=== PATIENT | female | born 1935 | race Caucasian/White ===

== ENCOUNTER 2016-07-07 11:24 | Emergency (ER) | payer OTHER ==
[~2016-07-07] VITALS: Ht 165.1 cm; Wt 86.2 kg
--- NOTE | ~2016-07-07 | EKG ---
[place] [address] [facility] [place] [address] ELECTROCARDIOGRAM REPORT Name: DORETHA TEIXEIRA Room #: DEP [facility]#: [id number] Admission: 07/07/16 Attend Phys: Discharge: 07/07/16 Date of : 39 Report #: [id number] THIS REPORT FOR: //name// [facility] ED Test Date: 2016-07-07 Test Time: 12:24:33 Pat Name: DORETHA TEIXEIRA Department: Room: Gender: F Jamb Cutter: MZOOK : 1935 Requested By: Alejandrina Cruz Order Number: [id number] MD: Gael Flores Measurements Intervals [place] Rate: 116 P: 15 [place]: 192 QRS: 34 QRSD: 90 T: 20 QT: 308 QTc: 428 Interpretive Statements Sinus tachycardia Probable left atrial enlargement Borderline low voltage, extremity leads No previous ECG available for comparison Electronically Signed On 07-09-2016 15:04:45 CDT by Gael Flores [email or web address] <ELECTRONICALLY SIGNED> By: Gael Flores MD, [facility] 07/09/16 1504 1224 1224 Gael Flores MD, FACC /EPI
[~2016-07-07 11:24] MED LIST: ADULT LOW DOSE81 MG PO; ALENDRONATE; ALEVE220 MG; ALLEGRA; ALLEGRA ALLERGY60 MG PO; ALLEGRA180 MG; APAP650 PO; ASA5UEC PO; ASPIRIN325 PO; AVAPRO 150 MG150 M1 PO; BENTYL 10 MG CA10 MG PO; CALCIUM; CHROMIUM PICO200 MC1 PO; FLEXERIL PO; KEFLEX500 MG PO; LASIX 20 MG TAB20 MG PO; LEVAQUIN 500 M500 M2 PO; LISINOPRIL10 MG PO; MULTIPLE VITAM1 EAC1 PO; NORCO 5-325 TA1 EACH PO; PRAVACHOL20 MG PO; PRILOSEC 20 MG20 MG PO; PROBIOTIC1 EAC1 PO; SYMBICORT80 MCG/4.1 INH; VENTOLIN HFA 1818 GM INH; VITAMIN D1000 UNI1 PO; VITAMIN D3400 UNIT PO; ZINC CHELATE50 MG PO
[2016-07-07 12:05] LABS: HEMOGLOBIN 13.5 gm/dL (12.0-15.0); MCV 87.4 fL (80.0-100.0); WBC 5.1 thou/uL (4.0-11.0)
[2016-07-07 12:07] LABS: MCH 29.6 pg (26.0-34.0); MCHC 33.8 g/dL (28.0-37.0); PLATELET COUNT 112 thou/uL (150-400); RBC 4.57 mil/uL (4.20-5.00); RDW 15.4 % (10.5-14.5)
[2016-07-07 12:09] LABS: MANUAL DIFF YES
[2016-07-07 12:25] LABS: ANION GAP 11 mmol/L (7-16); BUN 12 mg/dL (7-18); CALCIUM 8.4 mg/dL (8.5-10.1); CHLORIDE 103 mmol/L (98-107); CO2 23 mmol/L (21-32); CREATININE 0.9 mg/dL (0.6-1.3); GLUCOSE 122 mg/dL (70-99); POTASSIUM 3.9 mmol/L (3.5-5.1); SODIUM 137 mmol/L (136-145)
[2016-07-07 12:32] LABS: ABSOLUTE NEUTROPHILS 4.7 thou/uL (1.4-8.2); ANISOCYTOSIS 1+; METAMYELOCYTES 2 %; OVALOCYTES FEW; TOTAL CELL COUNT 100
[2016-07-07 12:35] LABS: ALBUMIN 3.1 g/dL (3.4-5.0); ALKALINE PHOSPHATASE 115 U/L (46-116); DIRECT BILIRUBIN 0.2 mg/dL (<0.1-0.3); NT-PRO BRAIN NAT PEPTIDE 95 pg/mL (<300); SGOT 29 U/L (15-37); SGPT 23 U/L (30-65); TOTAL BILIRUBIN 1.2 mg/dL (<0.1-1.0); TOTAL PROTEIN 6.7 g/dL (6.4-8.2); TROPONIN-I < 0.04 ng/mL (<0.04-0.07)
[2016-07-07] MEDS ORDERED: VENTOLIN HFA 1818 GM INH (13:22)
[2016-07-07] MEDS ORDERED: FLUTICASONE PRO16 GM NS (13:23)
[2016-07-07] MEDS ORDERED: ZOFRAN ODT4 MG PO (15:56)
== END 2016-07-07 16:40 | disposition home or self-care (01) ==
LOC: ER 11:24
PROVIDERS: Emergency Medicine
DX: R11.2 Nausea with vomiting, unspecified (principal); R51 Headache; R09.02 Hypoxemia; I10 Essential (primary) hypertension; Z88.1 Allergy status to other antibiotic agents; Z88.6 Allergy status to analgesic agent; Z88.0 Allergy status to penicillin; Z91.041 Radiographic dye allergy status; Z88.5 Allergy status to narcotic agent; Z88.8 Allergy status to other drugs, medicaments and biological substances

== ENCOUNTER 2016-08-24 15:08 | Observation (INO) | payer OTHER ==
[~2016-08-24] VITALS: Ht 172.7 cm; Wt 86.6 kg
--- NOTE | ~2016-08-24 | EKG ---
[address] [place] [address] ELECTROCARDIOGRAM REPORT Name: TEIXEIRA,DORETHA Cisneros Room #: 455-P ADM IN .R.#: [id number] Admission: 08/24/16 Attend Phys: Markos Kulkarni MD Discharge: Date of : 37 Report #: [id number] THIS REPORT FOR: //name// [facility] ED Test Date: 2016-08-24 Test Time: 15:46:01 Pat Name: DORETHA TEIXEIRA Department: Room: [facility] Gender: F Import Coordinator: rosemary : 1935 Requested By: Yvette Darling Order Number: [id number] MD: Gael Flores Measurements Intervals [place] Rate: 93 P: 12 [place]: 178 QRS: 22 QRSD: 87 T: 24 QT: 334 QTc: 416 Interpretive Statements Sinus rhythm Baseline wander in lead(s) V6 Compared to ECG 07/07/2016 12:24:33 Sinus tachycardia no longer present Electronically Signed On 08-25-2016 8:02:40 CDT by Gael Flores [email or web address] <ELECTRONICALLY SIGNED> By: Gael Flores MD, [facility] 08/25/16 0802 1546 1546 Gael Flores MD, [facility] /EPI
--- NOTE | ~2016-08-24 | 2DMMODE ---
[facility] [address] [place] [address] 2 D/M-MODE ECHOCARDIOGRAM Name: LLUVIADORETHA Blayne Room #: 455-P [facility] IN M.R.#: [id number] Admission: 08/24/16 Attend Phys: Markos Kulkarni, Discharge: Date of : 37 Date of Service: 08/25/16 1243 Report #: [id number] THIS REPORT FOR: //name// APPROVED REPORT Study performed: 08/25/2016 11:42:10 EXAM: Comprehensive 2D, Doppler, and color-flow Echocardiogram Patient Location: Bedside Room #: [facility] Other Information Study Quality: Fair Indications Chest Pain Hypertension/HDD Echo Enhancing Agent Indication: Endocardial border delineation Agent/Amount Used: Definity 2 cc Aortic Valve AoV Peak Favio.: 1.37 m/s AO Peak Gr.: 7.48 mmHg LVOT Max P.22 mmHg LVOT Max V: 1.03 m/s Mitral Valve IVRT: 134.95 ms Pulmonary Valve PV Peak Favio.: 1.19 m/s PV Peak Gr.: 5.62 mmHg Left Ventricle The left ventricle is normal size. There is normal LV segmental wall motion. There is normal left ventricular wall thickness. The left ventricular systolic function is normal. The left ventricular ejection fraction is within the normal range. LVEF is 55-60%. Grade I - abnormal relaxation pattern. Right Ventricle The right ventricle is normal size. The right ventricular systolic function is normal. [facility] [address] [place] [address] 2 D/M-MODE ECHOCARDIOGRAM Name: DORETHA TEIXEIRA Room #: 455-P [facility] IN .R.#: [id number] Admission: 08/24/16 Attend Phys: Markos Kulkarni, Discharge: Date of : 37 Date of Service: 08/25/16 1243 Report #: [id number] At[employer] The left atrium size is normal. Right atrium is not well visualized. Aortic Valve Aortic valve is not well visualized but appears normal. No aortic regurgitation is present. There is no aortic valvular stenosis. Mitral Valve The mitral valve is normal in structure. There is no mitral valve regurgitation noted. No evidence of mitral valve stenosis. Tricuspid Valve The tricuspid valve is normal in structure. There is no tricuspid valve regurgitation noted. Pulmonic Valve Pulmonic valve is not well visualized. Great Vessels Aortic root is not well visualized. IVC is not well visualized. Pericardium There is no pericardial effusion. <Conclusion> The left ventricular systolic function is normal. LVEF is 55-60%. There is normal LV segmental wall motion. Grade I - abnormal relaxation pattern. Aortic valve is not well visualized but appears normal. There is no aortic valvular stenosis oe insufficiency. The mitral valve is normal in structure. No mitral insufficiency There is no pericardial effusion. <ELECTRONICALLY SIGNED> By: Gael Flores MD, [facility] 08/25/16 1243 1243 1243 Gael Flores MD, FAC /INF
--- NOTE | ~2016-08-24 | HC ---
[facility] [place] [address] CONSULTATION Name: DORETHA TEIXEIRA Room #: 455-P [facility]..#: [id number] Admission: 08/24/16 Attend Phys: Markos Kulkarni MD Discharge: Date of : 37 Report #: [id number] THIS REPORT FOR: //name// CC: Markos Sheehan MD CARDIOLOGY CONSULTATION HISTORY OF PRESENT ILLNESS: The patient is a 81-year-old female who I just very intermittently see; I last saw her in January of 2014. She does have a significant family history of coronary artery disease with the father and a brother in the 70s has had a stent and the father had coronary artery disease prematurely and then from aortic aneurysm rupture. She had been doing well until the last few months, but having predominantly GI issues. Has had an extensive GI workup and scheduled for a scope. Had CAT scan here, which revealed nothing. Abdominal CAT scan was unremarkable here. She claims she has had some weight loss. Has a large hiatal hernia and feels a lot of chest pressure in the chest, neck, throat and shoulder. Although no troponin elevation, an EKG has some nonspecific changes, it is sinus rhythm. She is compliant with her medications, which cardiovascular crocker were really only irbesartan 150 a day, dicyclomine, zinc and Prilosec. Her lipids have not been significantly elevated in the past. She has not been on medicine for these. No syncope or presyncope. She remains active, but does not regularly exercise. PAST MEDICAL HISTORY: Positive for the hypertension, some asthma, chronic reflux, some weight loss now, prior DC, BABITA-BSO, appendectomy, cataract surgery and has had low blood sugars in the past. ALLERGIES: PENICILLIN, SULFA, IODINE, NICKEL and questionable BLAZE INHIBITORS with causing a rash. SOCIAL HISTORY: She is , with children. Quit tobacco 20-25 years ago. No alcohol. Moderate caffeine intake. 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 FAMILY HISTORY: Brother had stents in his early 70s and father had coronary artery disease and an aortic aneurysm in his 50s or 60s, she states. REVIEW OF SYSTEMS: Negative, except for stated above. Slightly more fatigued and this generalized irritable bowel issue. This has seemed of have worsened as well as reflux. LABORATORY DATA: H and H are 12.7 and 38, white count is 7.4. Sodium 136, potassium 4.3 and creatinine 0.7. Troponin is negative. PHYSICAL EXAMINATION: [address] [address] CONSULTATION Name: DORETHA TEIXEIRA Room #: 455-P [facility] M.R.#: [id number] Admission: 08/24/16 Attend Phys: Markos Kulkarni MD Discharge: Date of : 37 Report #: [id number] VITAL SIGNS: Blood pressure 124/64, pulse is 80 and regular. HEENT: Eyes reveal xanthelasmas. Pharynx is clear. NECK: Shows preserved upstrokes, without JVD or bruits. LUNGS: Clear. CARDIAC EXAMINATION: Regular rate and rhythm, S1, S2, without murmur or gallop. ABDOMEN: Slightly tender in the midepigastric. Positive bowel sounds are noted. EXTREMITIES: Reveal trace of nonpitting edema. NEUROLOGIC: Nonfocal. MUSCULOSKELETAL: Mild valgus deformity of the knees. No gross joint deformity. SKIN: Warm and dry, without xanthoma or ulcer. ASSESSMENT: 1. Chest pain, suspect this is noncardiac, but we will continue with further evaluation. 2. Abdominal pain with weight loss, continue workup. 3. Hypertension. 4. Irritable bowel with significant reflux history. 5. Degenerative joint disease. RECOMMENDATIONS AND PLAN: I agree with a nuclear stress test today. She appears to be hemodynamically stable. Continue the irbesartan. Would check lipids and address those accordingly with her family history. We will discuss the outcome on the nuclear study with primary. One could continue aggressive outpatient workup if nuclear test negative. We will be happy to follow her up regularly in addition, although it appears her cardiovascular status is stable. Thank you for asking us to assist in the care of this patient. By: 0928 1245 Leroy Cancino MD, FACC /nt
[~2016-08-24 15:08] MED LIST changes: +FLUTICASONE PRO16 GM NS; +ZOFRAN ODT4 MG PO
[2016-08-24 15:09] VITALS: BP 113/82
[2016-08-24] MEDS ORDERED: BENTYL 10 MG CA10 M1 PO (15:36)
[2016-08-24 15:48] LABS: ABSOLUTE NEUTROPHILS 5.5 thou/uL (1.4-8.2); BASOPHILS 0.7 % (0.0-2.0); EOSINOPHILS 0.4 % (0.0-3.0); HEMATOCRIT 37.3 % (37.0-47.0); HEMOGLOBIN 12.6 gm/dL (12.0-15.0); LYMPHOCYTES 14.8 % (24.0-44.0); MCH 28.1 pg (26.0-34.0); MCHC 33.8 g/dL (28.0-37.0); MCV 83.2 fL (80.0-100.0); MONOCYTES 8.6 % (1.0-8.0); PLATELET COUNT 231 thou/uL (150-400); POLYS 75.5 % (36.0-66.0); RBC 4.49 mil/uL (4.20-5.00); RDW 15.9 % (10.5-14.5); WBC 7.3 thou/uL (4.0-11.0)
[2016-08-24 15:50] LABS: MANUAL DIFF NO
[2016-08-24 16:01] LABS: ANION GAP 8 mmol/L (7-16); BUN 13 mg/dL (7-18); CALCIUM 8.9 mg/dL (8.5-10.1); CHLORIDE 97 mmol/L (98-107); CO2 26 mmol/L (21-32); CREATININE 0.6 mg/dL (0.6-1.0); GLUCOSE 109 mg/dL (74-106); SODIUM 131 mmol/L (136-145)
[2016-08-24 16:12] LABS: ALBUMIN 2.9 g/dL (3.4-5.0); ALKALINE PHOSPHATASE 85 U/L (46-116); NT-PRO BRAIN NAT PEPTIDE 83 pg/mL (<300); SGOT 18 U/L (15-37); SGPT 14 U/L (30-65); TOTAL BILIRUBIN 0.9 mg/dL (<0.1-1.0); TOTAL PROTEIN 7.8 g/dL (6.4-8.2); TROPONIN-I < 0.04 ng/mL (<0.04-0.07)
[2016-08-24 16:16] LABS: APTT 27.6 Seconds (24.5-32.8); INR 1.1; PROTIME 11.1 Seconds (9.3-11.4)
[2016-08-24 18:29] VITALS: BP 126/78
[2016-08-24 20:04] VITALS: BP 143/65
[2016-08-25 00:14] VITALS: BP 118/57
[2016-08-25 03:55] LABS: HEMATOCRIT 38.1 % (37.0-47.0); HEMOGLOBIN 12.7 gm/dL (12.0-15.0); MCHC 33.2 g/dL (28.0-37.0); MCV 84.2 fL (80.0-100.0); RBC 4.52 mil/uL (4.20-5.00); RDW 15.6 % (10.5-14.5); WBC 7.4 thou/uL (4.0-11.0)
[2016-08-25 04:09] LABS: ALBUMIN 2.7 g/dL (3.4-5.0); ALKALINE PHOSPHATASE 81 U/L (46-116); ANION GAP 8 mmol/L (7-16); BUN 10 mg/dL (7-18); CALCIUM 8.9 mg/dL (8.5-10.1); CHLORIDE 101 mmol/L (98-107); CO2 27 mmol/L (21-32); CREATININE 0.7 mg/dL (0.6-1.0); GLUCOSE 155 mg/dL (74-106); POTASSIUM 4.3 mmol/L (3.5-5.1); SGOT 16 U/L (15-37); SGPT 14 U/L (30-65); SODIUM 136 mmol/L (136-145); TOTAL BILIRUBIN 0.6 mg/dL (<0.1-1.0); TOTAL PROTEIN 7.4 g/dL (6.4-8.2); TROPONIN-I < 0.04 ng/mL (<0.04-0.07)
[2016-08-25 04:26] VITALS: BP 113/49
[2016-08-25 08:48] VITALS: BP 125/65
[2016-08-25 09:58] LABS: CHOLESTEROL 155 mg/dL (<200); HDL CHOLESTEROL 68 mg/dL (>40); LDL CHOLESTEROL 83 mg/dL (<100); TC:HDL 2.3 Ratio (Not establshd); TRIGLYCERIDE 22 mg/dL (<150); VLDL 4 mg/dL (<40)
[2016-08-25 15:40] VITALS: BP 125/65
== END 2016-08-25 16:56 | disposition home or self-care (01) ==
LOC: ER 15:08 → 4W 16:31 → EROBS 16:31 → 4W 16:31
PROVIDERS: Emergency Medicine; Internal Medicine; Internal Medicine Cardiovascular Disease
DX: R07.89 Other chest pain (principal); E87.1 Hypo-osmolality and hyponatremia; E87.8 Other disorders of electrolyte and fluid balance, not elsewhere classified; K21.9 Gastro-esophageal reflux disease without esophagitis; I10 Essential (primary) hypertension; R63.4 Abnormal weight loss; R10.9 Unspecified abdominal pain; M19.90 Unspecified osteoarthritis, unspecified site; K58.9 Irritable bowel syndrome, unspecified; R11.0 Nausea
CPT/HCPCS: 10045

== ENCOUNTER 2016-10-22 20:51 | Emergency (ER) | payer OTHER ==
[~2016-10-22] VITALS: Ht 170.2 cm; Wt 83.9 kg
[~2016-10-22 20:51] MED LIST changes: +BENTYL 10 MG CA10 M1 PO; +CHLORHEXIDINE FL1 ML MC
[2016-10-22] MEDS ORDERED: VITAMIN B-12500 MCG PO (21:22)
[2016-10-22] MEDS ORDERED: ASPIR 8181 MG PO (21:23)
[2016-10-22] MEDS ORDERED: PERIDEX 0.12%473 M1 PO (21:24)
[2016-10-22] MEDS ORDERED: HYDROXYZINE HCL25 M1 PO (22:46)
[2016-10-22] MEDS ORDERED: BENADRYL25 MG PO (22:56)
== END 2016-10-22 22:57 | disposition home or self-care (01) ==
LOC: ER 20:51
DX: R20.8 Other disturbances of skin sensation (principal); I10 Essential (primary) hypertension; Z88.6 Allergy status to analgesic agent; Z88.1 Allergy status to other antibiotic agents; Z91.041 Radiographic dye allergy status; Z88.0 Allergy status to penicillin; Z88.8 Allergy status to other drugs, medicaments and biological substances; Z87.891 Personal history of nicotine dependence

== ENCOUNTER → 2017-01-08 | Outpatient (CLI) | payer OTHER ==
[~2017-01-08] MED LIST changes: +ASPIR 8181 MG PO; +BENADRYL25 MG PO; +HYDROXYZINE HCL25 M1 PO; +PERIDEX 0.12%473 M1 PO; +VITAMIN B-12500 MCG PO
== END ==
LOC: HYPER 06:42
DX: T81.89XD Other complications of procedures, not elsewhere classified, subsequent encounter (principal); I10 Essential (primary) hypertension; K21.9 Gastro-esophageal reflux disease without esophagitis; M19.90 Unspecified osteoarthritis, unspecified site; M85.80 Other specified disorders of bone density and structure, unspecified site; Z90.710 Acquired absence of both cervix and uterus; Z87.891 Personal history of nicotine dependence; Y83.8 Other surgical procedures as the cause of abnormal reaction of the patient, or of later complication, without mention of misadventure at the time of the procedure

== ENCOUNTER → 2017-01-15 | Outpatient (CLI) | payer OTHER | LOC: HYPER 07:07 | DX: T81.4XXD Infection following a procedure, subsequent encounter (principal); I10 Essential (primary) hypertension; K21.9 Gastro-esophageal reflux disease without esophagitis; M19.90 Unspecified osteoarthritis, unspecified site; Z90.710 Acquired absence of both cervix and uterus; Z87.891 Personal history of nicotine dependence; Z96.653 Presence of artificial knee joint, bilateral; Y83.8 Other surgical procedures as the cause of abnormal reaction of the patient, or of later complication, without mention of misadventure at the time of the procedure ==

== ENCOUNTER → 2017-01-29 | Outpatient (CLI) | payer OTHER | LOC: HYPER 07:02 | DX: T81.4XXD Infection following a procedure, subsequent encounter (principal); I10 Essential (primary) hypertension; K21.9 Gastro-esophageal reflux disease without esophagitis; M19.90 Unspecified osteoarthritis, unspecified site; Z87.891 Personal history of nicotine dependence; Y83.8 Other surgical procedures as the cause of abnormal reaction of the patient, or of later complication, without mention of misadventure at the time of the procedure ==

== ENCOUNTER 2018-08-17 09:31 | Emergency (ER) | payer OTHER ==
[~2018-08-17] VITALS: Ht 167.6 cm; Wt 79.4 kg
[2018-08-17 10:05] LABS: URINE BILIRUBIN NEGATIVE (Negative); URINE BLOOD 1+ (Negative); URINE CLARITY CLOUDY; URINE COLOR YELLOW; URINE GLUCOSE-RANDOM* NEGATIVE (Negative); URINE KETONES NEGATIVE (Negative); URINE PROTEIN (DIPSTICK) NEGATIVE (Negative); URINE SPECIFIC GRAVITY <= 1.005 (1.005-1.035); URINE UROBILINOGEN 0.2 E.U./dl (0.2-1.0)
[2018-08-17 10:07] LABS: URINE LEUKOCYTES-REFLEX 3+ (Negative); URINE NITRITE-REFLEX POSITIVE (Negative)
[2018-08-17 10:37] LABS: BACTERIA-REFLEX >30 Many /HPF (None Seen); CASTS None Seen /LPF (None Seen); CRYSTALS None Seen /LPF (None Seen); SQUAMOUS 0-3 Few /LPF (0-3); URINE RBC 0-2 Rare /HPF (0-2); URINE WBC-REFLEX >25 Many /HPF (0-5)
[2018-08-17 11:40] VITALS: BP 186/90
== END 2018-08-17 11:40 | disposition home or self-care (01) ==
LOC: ER 09:31
PROVIDERS: Student in an Organized Health Care Education/Training Program
DX: S30.814A Abrasion of vagina and vulva, initial encounter (principal); N39.0 Urinary tract infection, site not specified; I10 Essential (primary) hypertension; Z88.6 Allergy status to analgesic agent; Z88.1 Allergy status to other antibiotic agents; Z91.041 Radiographic dye allergy status; Z88.5 Allergy status to narcotic agent; Z88.0 Allergy status to penicillin; Z88.2 Allergy status to sulfonamides; Z88.8 Allergy status to other drugs, medicaments and biological substances; Z87.891 Personal history of nicotine dependence; X58.XXXA Exposure to other specified factors, initial encounter; Y93.89 Activity, other specified; Y92.89 Other specified places as the place of occurrence of the external cause; Y99.8 Other external cause status

== ENCOUNTER 2018-09-11 13:37 | Emergency (ER) | payer OTHER ==
[~2018-09-11] VITALS: Ht 170.2 cm; Wt 101.2 kg
[2018-09-11 14:08] VITALS: BP 142/87
[2018-09-11] MEDS ORDERED: CEFDINIR300 MG PO (14:27)
== END 2018-09-11 15:24 | disposition home or self-care (01) ==
LOC: ER 13:37
DX: M79.662 Pain in left lower leg (principal); I10 Essential (primary) hypertension; Z87.891 Personal history of nicotine dependence; Z88.0 Allergy status to penicillin; Z88.1 Allergy status to other antibiotic agents; Z88.2 Allergy status to sulfonamides; Z88.5 Allergy status to narcotic agent; Z88.6 Allergy status to analgesic agent; Z91.041 Radiographic dye allergy status; Z88.8 Allergy status to other drugs, medicaments and biological substances

== ENCOUNTER 2019-01-13 11:19 | Emergency (ER) | payer OTHER ==
[~2019-01-13] VITALS: Ht 172.7 cm; Wt 99.5 kg
[~2019-01-13 11:19] MED LIST changes: +CEFDINIR300 MG PO
[2019-01-13] MEDS ORDERED: VALSARTAN160 MG PO (11:32)
[2019-01-13 12:02] LABS: URINE BILIRUBIN NEGATIVE (Negative); URINE BLOOD 2+ (Negative); URINE CLARITY CLOUDY; URINE COLOR YELLOW; URINE GLUCOSE-RANDOM* NEGATIVE (Negative); URINE KETONES NEGATIVE (Negative); URINE LEUKOCYTES-REFLEX 3+ (Negative); URINE NITRITE-REFLEX POSITIVE (Negative); URINE PROTEIN (DIPSTICK) 1+ (Negative); URINE UROBILINOGEN 0.2 E.U./dl (0.2-1.0)
[2019-01-13 12:23] LABS: CALCIUM 8.6 mg/dL (8.5-10.1); CREATININE 0.8 mg/dL (0.6-1.0)
[2019-01-13 12:25] LABS: HEMATOCRIT 41.1 % (37.0-47.0); HEMOGLOBIN 13.3 gm/dL (12.0-15.0); MCH 27.3 pg (26.0-34.0); MCHC 32.3 g/dL (28.0-37.0); MCV 84.5 fL (80.0-100.0); PLATELET COUNT 155 thou/uL (150-400); RBC 4.87 mil/uL (4.20-5.00); RDW 17.2 % (10.5-14.5); WBC 4.3 thou/uL (4.0-11.0)
[2019-01-13 12:30] LABS: ALBUMIN 3.2 g/dL (3.4-5.0); TOTAL BILIRUBIN 0.7 mg/dL (<0.1-1.0); TOTAL PROTEIN 7.5 g/dL (6.4-8.2)
[2019-01-13 12:46] LABS: BACTERIA-REFLEX >30 Many /HPF (None Seen); CASTS None Seen /LPF (None Seen); CRYSTALS None Seen /LPF (None Seen); SQUAMOUS None Seen /LPF (0-3); URINE WBC-REFLEX >25 Many /HPF (0-5)
[2019-01-13 12:47] LABS: URINE RBC 3-10 Few /HPF (0-2)
[2019-01-13 13:09] LABS: ABSOLUTE NEUTROPHILS 2.8 thou/uL (1.4-8.2); PLATELET ESTIMATE NORMAL
[2019-01-13 13:23] VITALS: BP 138/87
== END 2019-01-13 13:24 | disposition home or self-care (01) ==
LOC: ER 11:19
PROVIDERS: Physician Assistant
DX: N39.0 Urinary tract infection, site not specified (principal); I10 Essential (primary) hypertension; Z91.041 Radiographic dye allergy status; Z88.1 Allergy status to other antibiotic agents; Z88.0 Allergy status to penicillin; Z88.6 Allergy status to analgesic agent; Z88.8 Allergy status to other drugs, medicaments and biological substances; Z87.891 Personal history of nicotine dependence

== ENCOUNTER 2019-03-24 10:50 | Emergency (ER) | payer OTHER ==
[~2019-03-24] VITALS: Ht 172.7 cm; Wt 100.2 kg
[~2019-03-24 10:50] MED LIST changes: +VALSARTAN160 MG PO
[2019-03-24 11:46] LABS: ABSOLUTE NEUTROPHILS 2.3 thou/uL (1.4-8.2); BASOPHILS 1.2 % (0.0-2.0); EOSINOPHILS 1.6 % (0.0-3.0); HEMATOCRIT 42.1 % (37.0-47.0); HEMOGLOBIN 13.5 gm/dL (12.0-15.0); LYMPHOCYTES 24.9 % (24.0-44.0); MCH 26.9 pg (26.0-34.0); MCV 84.2 fL (80.0-100.0); MONOCYTES 10.3 % (1.0-8.0); PLATELET COUNT 136 thou/uL (150-400); RBC 5.01 mil/uL (4.20-5.00); RDW 16.9 % (10.5-14.5); WBC 3.7 thou/uL (4.0-11.0)
[2019-03-24 11:54] LABS: CALCIUM 9.1 mg/dL (8.5-10.1); CREATININE 0.6 mg/dL (0.6-1.0); POTASSIUM 4.2 mmol/L (3.5-5.1)
[2019-03-24 12:01] LABS: ALBUMIN 3.6 g/dL (3.4-5.0); TOTAL BILIRUBIN 0.8 mg/dL (<0.1-1.0); TOTAL PROTEIN 7.5 g/dL (6.4-8.2)
[2019-03-24 13:03] VITALS: BP 170/119
== END 2019-03-24 13:39 | disposition home or self-care (01) ==
LOC: ER 10:50
PROVIDERS: Physician Assistant
DX: R60.0 Localized edema (principal); I10 Essential (primary) hypertension; Z87.891 Personal history of nicotine dependence; Z88.6 Allergy status to analgesic agent; Z88.1 Allergy status to other antibiotic agents; Z91.041 Radiographic dye allergy status; Z88.8 Allergy status to other drugs, medicaments and biological substances; Z88.2 Allergy status to sulfonamides; Z79.899 Other long term (current) drug therapy; Z79.82 Long term (current) use of aspirin

== ENCOUNTER 2019-04-28 10:37 | Emergency (ER) | payer OTHER ==
[~2019-04-28] VITALS: Ht 170.2 cm; Wt 99.8 kg
[2019-04-28 11:00] LABS: ABSOLUTE NEUTROPHILS 2.7 thou/uL (1.4-8.2); BASOPHILS 0.7 % (0.0-2.0); EOSINOPHILS 1.8 % (0.0-3.0); HEMOGLOBIN 13.8 gm/dL (12.0-15.0); LYMPHOCYTES 26.3 % (24.0-44.0); MCH 27.2 pg (26.0-34.0); MCHC 32.1 g/dL (28.0-37.0); MCV 84.9 fL (80.0-100.0); PLATELET COUNT 151 thou/uL (150-400); POLYS 60.2 % (36.0-66.0); RBC 5.06 mil/uL (4.20-5.00); RDW 17.8 % (10.5-14.5); WBC 4.6 thou/uL (4.0-11.0)
[2019-04-28 11:06] LABS: ANION GAP 7 mmol/L (7-16); BUN 12 mg/dL (7-18); CALCIUM 9.4 mg/dL (8.5-10.1); CHLORIDE 108 mmol/L (98-107); CO2 30 mmol/L (21-32); CREATININE 0.8 mg/dL (0.6-1.0); GLUCOSE 112 mg/dL (74-106); POTASSIUM 3.7 mmol/L (3.5-5.1); SODIUM 145 mmol/L (136-145)
[2019-04-28 11:16] LABS: ALBUMIN 3.7 g/dL (3.4-5.0); SGOT 19 U/L (15-37); SGPT 27 U/L (30-65); TOTAL BILIRUBIN 0.8 mg/dL (<0.1-1.0); TOTAL PROTEIN 7.9 g/dL (6.4-8.2); TROPONIN-I <0.06 ng/mL (<0.06)
[2019-04-28] MEDS ORDERED: IRBESARTAN150 MG PO (12:23)
[2019-04-28] MEDS ORDERED: VITAMIN D50000 UNIT PO (12:24)
[2019-04-28] MEDS ORDERED: CARAFATE 1 GM TA1 G1 PO ×2 (13:07→13:16)
[2019-04-28 13:43] VITALS: BP 146/67
--- NOTE | 2019-04-28 13:50 | EKG ---
[address] [address] ELECTROCARDIOGRAM REPORT Name: TEIXEIRA,DORETHA Cisneros Room #: DEP [facility]#: [id number] Admission: 04/28/19 Attend Phys: Discharge: 04/28/19 Date of : 37 Report #: [id number] THIS REPORT FOR: //name// [facility] ED Test Date: 2019-04-28 Test Time: 10:51:15 Pat Name: DORETHA TEIXEIRA Department: Room: Gender: F Electrical And Radio Mechanic: hood gamino : 1935 Requested By: Mirela Beaver Order Number: [id number] MD: Man Robb Measurements Intervals [place] Rate: 77 P: 15 [place]: 190 QRS: 28 QRSD: 99 T: 24 QT: 363 QTc: 411 Interpretive Statements Sinus rhythm Compared to ECG 09/05/2016 19:16:50 No significant changes Electronically Signed On 04-28-2019 13:50:12 VENEER GRADER by Man Robb [email or web address] <ELECTRONICALLY SIGNED> By: Man Robb MD 04/28/19 1350 1050 50 Man Robb MD /ISMAEL
== END 2019-04-28 13:44 | disposition home or self-care (01) ==
LOC: ER 10:37
PROVIDERS: Physician Assistant
DX: K21.9 Gastro-esophageal reflux disease without esophagitis (principal); R07.89 Other chest pain; I10 Essential (primary) hypertension; Z88.6 Allergy status to analgesic agent; Z88.1 Allergy status to other antibiotic agents; Z88.0 Allergy status to penicillin; Z88.2 Allergy status to sulfonamides; Z88.8 Allergy status to other drugs, medicaments and biological substances; Z87.891 Personal history of nicotine dependence

== ENCOUNTER → 2019-05-13 | Outpatient (CLI) | payer OTHER ==
[~2019-05-13] MED LIST changes: +CARAFATE 1 GM TA1 G1 PO; +IRBESARTAN150 MG PO; +VITAMIN D50000 UNIT PO
== END ==
LOC: CAT 05-02 19:51
DX: Z13.6 Encounter for screening for cardiovascular disorders (principal); E78.00 Pure hypercholesterolemia, unspecified; I25.10 Atherosclerotic heart disease of native coronary artery without angina pectoris

== ENCOUNTER → 2019-06-09 | Outpatient (CLI) | payer OTHER | LOC: SJCVC 14:25 | DX: I44.0 Atrioventricular block, first degree (principal); R94.31 Abnormal electrocardiogram [ECG] [EKG]; I25.10 Atherosclerotic heart disease of native coronary artery without angina pectoris; I10 Essential (primary) hypertension; E78.5 Hyperlipidemia, unspecified; J45.909 Unspecified asthma, uncomplicated; Z90.49 Acquired absence of other specified parts of digestive tract; Z90.710 Acquired absence of both cervix and uterus; Z96.652 Presence of left artificial knee joint; Z79.899 Other long term (current) drug therapy; Z87.891 Personal history of nicotine dependence ==

== ENCOUNTER → 2019-10-07 | Outpatient (CLI) | payer OTHER ==
[~2019-10-07] MED LIST changes: +B12 ACTIVE1000 MCG PO; +CLOPIDOGREL75 MG PO; +HYDROCHLOROTH12.5 M2 PO; +MAGNESIUM250 M1 PO; +MELATONIN5 MG PO; +PRILOSEC10 MG PO; +ROSUVASTATIN CA10 MG PO; +SENNA8.6 MG PO; +XARELTO20 MG PO; +ZINC 15 MG LOZE15 MG PO
== END ==
LOC: SJCVCIMAG 09:33
PROVIDERS: ATTEND Internal Medicine Cardiovascular Disease
DX: Z01.818 Encounter for other preprocedural examination (principal); R00.0 Tachycardia, unspecified; I25.10 Atherosclerotic heart disease of native coronary artery without angina pectoris; E78.5 Hyperlipidemia, unspecified; I10 Essential (primary) hypertension; Z87.891 Personal history of nicotine dependence

== ENCOUNTER 2019-10-14 07:55 | Observation (INO) | payer OTHER ==
[2019-10-14] VITALS (12 sets, daily range): BP systolic 127–161; BP diastolic 62–88
[~2019-10-14] VITALS: Ht 172.7 cm; Wt 98.9 kg
[~2019-10-14 07:55] MED LIST changes: -B12 ACTIVE1000 MCG PO; -CLOPIDOGREL75 MG PO; -HYDROCHLOROTH12.5 M2 PO; -MAGNESIUM250 M1 PO; -MELATONIN5 MG PO; -PRILOSEC10 MG PO; -ROSUVASTATIN CA10 MG PO; -SENNA8.6 MG PO; -XARELTO20 MG PO; -ZINC 15 MG LOZE15 MG PO
[2019-10-14 08:34] LABS: HEMATOCRIT 43.3 % (37.0-47.0); HEMOGLOBIN 14.3 gm/dL (12.0-15.0); MCH 28.6 pg (26.0-34.0); MCHC 33.1 g/dL (28.0-37.0); MCV 86.4 fL (80.0-100.0); RBC 5.01 mil/uL (4.20-5.00); RDW 17.3 % (10.5-14.5); WBC 4.6 thou/uL (4.0-11.0)
[2019-10-14 08:47] LABS: CALCIUM 8.7 mg/dL (8.5-10.1); CREATININE 0.7 mg/dL (0.6-1.0); POTASSIUM 3.7 mmol/L (3.5-5.1)
[2019-10-14] MEDS ORDERED: HYDROCHLOROTH12.5 M2 PO (08:54)
[2019-10-14] MEDS ORDERED: B12 ACTIVE1000 MCG PO (08:56)
[2019-10-14] MEDS ORDERED: ZINC 15 MG LOZE15 MG PO (08:57)
[2019-10-14] MEDS ORDERED: MAGNESIUM250 M1 PO (08:57)
[2019-10-14] MEDS ORDERED: CHROMIUM PICO200 MC1 PO (08:58)
[2019-10-14] MEDS ORDERED: ROSUVASTATIN CA10 MG PO (08:59)
[2019-10-14] MEDS ORDERED: SENNA8.6 MG PO (09:00)
[2019-10-14] MEDS ORDERED: MELATONIN5 MG PO (09:01)
[2019-10-14] MEDS ORDERED: PRILOSEC10 MG PO (09:02)
--- NOTE | 2019-10-14 17:01 | NUR ---
PT CARE ASSUMED APPROX 0700. ASSESSMENTS CHARTED. PT DENIES PAIN AND SOA. VSS. RIGHT GROIN POST CATH SITE C/D/I. PT UP WITH STEADY GAIT. TOLERATING POC. NO DISTRESS NOTED.
--- NOTE | 2019-10-14 17:30 | CATHLAB ---
[facility] [place] [address] INVASIVE PROCEDURE REPORT Name: DORETHA TEIXEIRA Room #: 217-P [facility] [place] M.R.#: [id number] Admission: 10/14/19 Attend Phys: Leroy Cancino MD, Discharge: Date of : 37 Report #: [id number] THIS REPORT FOR: cc: Karen Sheehan MD, Melanie MD Mancuso, Gerald M. MD [facility] ~ APPROVED REPORT Study performed: 10/14/2019 08:40:00 Patient Details Patient Status: Out-Patient Room #: The patient is a 84 year-old female Event Personnel Leroy Cancino Oil Expeller Operator, Virginia Ramos RN, Mike Garvey RTR Scrub, Lise Mann RTR Monitor, Kim Bullard RTR, INTERNET E COMMERCE SPECIALIST Monitor Procedures Performed Art Access - R femoral artery* Left Heart Cath w/or w/o Coronaries [id number] [facility] [address] Place w/wo Plasty Single OM 352366 Aortogram Abdominal Peripheral Angio 148440 51399 Initial Mod Sed Same Phys/QHP Gr5y 918868 23612 Mod Sed Same Phys/QHP Ea 158426 Hemostasis w/ Mynx Indication Chest pain Procedure Narrative The Right Groin^ was infiltrated with 1% Lidocaine subcutaneous anesthesia. A PINNACLE 6FR Sheath #[id number] sheath was inserted into the RFA^. Coronary angiography was performed using coronary diagnostic catheters. The right coronary system was accessed and visualized with a 3DRC catheter. The left coronary system was accessed and visualized with a JL4 catheter. The left ventricle was accessed and visualized with a PIGTAIL catheter. Left ventriculogram was performed in 30 degree projection. An aortogram of the abdominal aorta was performed. Closure device was deployed with a Fr MYNXGRIP 6/7F #[id number]. The patient tolerated the procedure well and there were no complications associated with the procedure. A hematoma occurred. Intraoperative Conscious Sedation [facility] [address] [place] [address] INVASIVE PROCEDURE REPORT Name: DORETHA TEIXEIRA Room #: 217-P [facility] IN [facility]#: [id number] Admission: 10/14/19 Attend Phys: Leroy Cancino, Discharge: Date of : 37 Report #: [id number] Sedation start time: 9:45 Case end Time: 10:34 Fentanyl 100 mcg Versed 2.0 mg Fluoro Time: 8.14 minutes Dose: DAP 13528.90 cGycm2 1410 mGy Contrast Type and Amount: Omnipaque 220 ml Hemodynamics The aortic pressure is 136/41 mmHg with a mean of 46 mmHg. The left ventricular pressure is 145/12 mmHg with a mean of mmHg. The left ventricular end diastolic pressure is 29 mmHg. PCI Technique Lesion Percutaneous coronary intervention was performed on the first obtuse marginal branch segment. A LAUNCHER 6FR EBU 3.5 #[id number] Guide Catheter was used to engage the ostium. A Luge Wire .014 x 182CM #[id number] Interventional Guidewire was used to cross the lesion. BALLOON DILATION A Balloon catheter Sprinter OTW 2.5 x 12 #[id number] was inserted and inflated up to 8.00atm for 34seconds. Additional Inflation: 10.00atm for 19seconds. STENT DEPLOYMENT A drug-eluting stent RESOLUTE LATOYA OTW 2.5 X 8 #[id number] was inserted and inflated up to 14.00atm for 28seconds. Conclusion #1. Successful PTCA stent of a proximal circumflex OM branch moderate distribution 95% to 0% with placement of a 2.5 x 8 resolute Latoya drug-eluting stent. 2.6 mm in size ONEAL grade III flow #2 left main free of disease giving rise to LAD and circumflex #3 the LAD is mildly calcified proximally. There is an eccentric 50 to 60% lesion just proximal to a small diagonal takeoff. The LAD mildly diseased around the apex. No high-grade occlusive disease. #4 dominant right coronary artery with mild proximal and mid vessel calcification no high-grade occlusive disease PDA JACKI mildly diseased #5 normal left ventricular size systolic function normal 55 to 60% #6 abdominal aortogram reveals a very small distal aortic dilatation small aneurysm not involving the iliac bifurcation. Renal arteries and iliac system mildly diseased. Will follow that small aneurysm noninvasively. [facility] [address] [place] [address] INVASIVE PROCEDURE REPORT Name: DORETHA TEIXEIRA Room #: 217-P [facility] IN M.R.#: [id number] Admission: 10/14/19 Attend Phys: Leroy Cancino, Discharge: Date of : 37 Report #: [id number] Recommendations and plan: Continue aggressive risk factor modification. Dual antiplatelet therapy initiated. Transferred to CCU to follow post coronary stent protocol. Hemodynamically stable and pain-free. <ELECTRONICALLY SIGNED> By: Leroy Cancino MD, FACC 10/14/191729 29 29 Leroy Cancino MD, FACC /INF
[2019-10-15 05:31] VITALS: BP 140/77
--- NOTE | 2019-10-15 06:33 | NUR ---
A/O X 4.UP INDEPENDENTLY.DENIES PAIN AND SOB.RIGHT GROIN DRESSING C/D/I.MONITOR SHOWS SR.POC CONTINUED.
--- NOTE | 2019-10-15 07:18 | EKG ---
[facility] [place] [address] ELECTROCARDIOGRAM REPORT Name: DORETHA TEIXEIRA Room #: 217-P [facility] M.R.#: [id number] Admission: 10/14/19 Attend Phys: Leroy Cancino MD, Discharge: Date of : 37 Report #: [id number] THIS REPORT FOR: cc: Karen Sheehan MD, Melanie MD Lundgren,Gael Cheema MD [facility] ~ THIS REPORT FOR: //name// [facility] Test Date: 2019-10-14 Test Time: 08:31:27 Pat Name: DORETHA TEIXEIRA Department: Room: 217 Gender: F Director Compliance: Deepti GREEN : 1935 Requested By: Leroy Cancino Order Number: [id number] MD: Gael Flores Measurements Intervals [place] Rate: 61 P: 26 [place]: 188 QRS: 39 QRSD: 95 T: 27 QT: 393 QTc: 396 Interpretive Statements Sinus rhythm No significant abnormality Compared to ECG 04/28/2019 10:51:15 No significant changes Electronically Signed On 10-15-2019 7:17:24 CDT by Gael Flores [email or web address] <ELECTRONICALLY SIGNED> By: Gael Flores MD, [facility] 10/15/19 0717 0 0 Gael Flores MD, [facility] /EPI
[2019-10-15] MEDS ORDERED: CLOPIDOGREL75 MG PO (07:30)
--- NOTE | 2019-10-15 07:34 | EKG ---
[facility] [place] [address] ELECTROCARDIOGRAM REPORT Name: DORETHA TEIXEIRA Room #: 217-P [facility] M.R.#: [id number] Admission: 10/14/19 Attend Phys: Leroy Cancino MD, Discharge: Date of : 37 Report #: [id number] THIS REPORT FOR: cc: Karen Sheehan MD, Melanie MD Lundgren,Gael Cheema MD [facility] THIS REPORT FOR: //name// [facility] Test Date: 2019-10-15 Test Time: 07:01:39 Pat Name: DORETHA TEIXEIRA Department: Room: 217 P Gender: F 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: [facility] : 1935 Requested By: Leroy Cancino Order Number: [id number] MD: Gael Flores Measurements Intervals [place] Rate: 92 P: 16 [place]: 194 QRS: 34 QRSD: 95 T: 12 QT: 338 QTc: 419 Interpretive Statements Sinus rhythm Normal tracing Compared to ECG 10/14/2019 08:31:27 No significant changes Electronically Signed On 10-15-2019 7:33:29 CDT by Gael Flores [email or web address] <ELECTRONICALLY SIGNED> By: Gael Flores MD, FACC 10/15/19 0733 0 Gael Flores MD, [facility] /EPI
[2019-10-15 07:45] VITALS: BP 150/84
[2019-10-15 10:09] VITALS: BP 150/84
--- NOTE | 2019-10-15 11:31 | NUR ---
PT CARE ASSUMED APPROX 0700. ASSESSMENT CHARTED. PT DENIES PAIN AND SOA. VSS. UP WITH STEADY GAIT. RIGHT GROIN POST CATH SITE C/D/I. DISCHARGE EDUCATION REVIEWED BY CV JUAREZ STARK THEN REINFORCED BY THIS NURSE. PT DENIES QUESTIONS OR CONCERNS REGARDING POST HOSPITAL CARES. IV OUT, TELE OFF. PT ESCORTED OUT TIMELY VIA WHEELCHAIR BY NURSING STAFF.
== END 2019-10-15 11:20 | disposition home or self-care (01) ==
LOC: CATH 07:55 → 2N 10:03 → CATH 10:25 → 2N 10-15 11:20
PROVIDERS: ADMIT Internal Medicine Cardiovascular Disease; ATTEND Internal Medicine Cardiovascular Disease
DX: I25.10 Atherosclerotic heart disease of native coronary artery without angina pectoris (principal); I10 Essential (primary) hypertension; E78.00 Pure hypercholesterolemia, unspecified

== ENCOUNTER 2019-10-23 13:54 | Emergency (ER) | payer OTHER ==
[~2019-10-23] VITALS: Ht 172.7 cm; Wt 96.3 kg
[~2019-10-23 13:54] MED LIST changes: +B12 ACTIVE1000 MCG PO; +CLOPIDOGREL75 MG PO; +HYDROCHLOROTH12.5 M2 PO; +MAGNESIUM250 M1 PO; +MELATONIN5 MG PO; +PRILOSEC10 MG PO; +ROSUVASTATIN CA10 MG PO; +SENNA8.6 MG PO; +ZINC 15 MG LOZE15 MG PO
[2019-10-23 16:48] LABS: ABSOLUTE NEUTROPHILS 3.9 thou/uL (1.4-8.2); BASOPHILS 0.9 % (0.0-2.0); EOSINOPHILS 1.4 % (0.0-3.0); HEMATOCRIT 41.1 % (37.0-47.0); HEMOGLOBIN 13.5 gm/dL (12.0-15.0); LYMPHOCYTES 22.8 % (24.0-44.0); MCH 29.1 pg (26.0-34.0); MCHC 32.9 g/dL (28.0-37.0); MCV 88.3 fL (80.0-100.0); MONOCYTES 9.8 % (1.0-8.0); PLATELET COUNT 139 thou/uL (150-400); POLYS 65.1 % (36.0-66.0); RBC 4.65 mil/uL (4.20-5.00); RDW 17.9 % (10.5-14.5)
[2019-10-23 16:54] LABS: CALCIUM 8.7 mg/dL (8.5-10.1); CREATININE 0.7 mg/dL (0.6-1.0); POTASSIUM 3.8 mmol/L (3.5-5.1)
[2019-10-23] MEDS ORDERED: XARELTO20 MG PO (17:46)
[2019-10-23 18:36] VITALS: BP 145/73
== END 2019-10-23 18:36 | disposition home or self-care (01) ==
LOC: ER 13:54
PROVIDERS: Nurse Practitioner Family
DX: I82.411 Acute embolism and thrombosis of right femoral vein (principal); I10 Essential (primary) hypertension; I25.10 Atherosclerotic heart disease of native coronary artery without angina pectoris; E78.5 Hyperlipidemia, unspecified; Z86.718 Personal history of other venous thrombosis and embolism; Z95.5 Presence of coronary angioplasty implant and graft; Z79.899 Other long term (current) drug therapy; Z79.82 Long term (current) use of aspirin; Z79.2 Long term (current) use of antibiotics; Z88.6 Allergy status to analgesic agent; Z88.1 Allergy status to other antibiotic agents; Z91.041 Radiographic dye allergy status; Z88.0 Allergy status to penicillin; Z88.2 Allergy status to sulfonamides; Z87.891 Personal history of nicotine dependence

== ENCOUNTER → 2019-10-31 | Outpatient (CLI) | payer OTHER ==
[~2019-10-31] MED LIST changes: +XARELTO20 MG PO
== END ==
LOC: SJCVCIMAG 13:22
PROVIDERS: ATTEND Internal Medicine Cardiovascular Disease
DX: I82.411 Acute embolism and thrombosis of right femoral vein (principal); I25.10 Atherosclerotic heart disease of native coronary artery without angina pectoris; I10 Essential (primary) hypertension; E78.00 Pure hypercholesterolemia, unspecified; D68.59 Other primary thrombophilia; K21.9 Gastro-esophageal reflux disease without esophagitis; J45.909 Unspecified asthma, uncomplicated; Z79.82 Long term (current) use of aspirin; Z79.899 Other long term (current) drug therapy; Z87.891 Personal history of nicotine dependence

== ENCOUNTER → 2020-02-04 | Outpatient (CLI) | payer OTHER | LOC: SJCVCIMAG 07:28 | PROVIDERS: ATTEND Internal Medicine Cardiovascular Disease | DX: R94.31 Abnormal electrocardiogram [ECG] [EKG] (principal); I25.10 Atherosclerotic heart disease of native coronary artery without angina pectoris; I82.411 Acute embolism and thrombosis of right femoral vein; I10 Essential (primary) hypertension; E78.00 Pure hypercholesterolemia, unspecified; D68.59 Other primary thrombophilia; I48.0 Paroxysmal atrial fibrillation; Z79.899 Other long term (current) drug therapy; Z87.891 Personal history of nicotine dependence ==

== ENCOUNTER → 2020-02-26 | Outpatient (CLI) | payer OTHER | LOC: SJCVCIMAG 07:41 | PROVIDERS: ATTEND Internal Medicine Cardiovascular Disease | DX: I48.91 Unspecified atrial fibrillation (principal); I49.3 Ventricular premature depolarization; I25.10 Atherosclerotic heart disease of native coronary artery without angina pectoris; Z79.899 Other long term (current) drug therapy ==

== ENCOUNTER → 2020-03-03 | Outpatient (CLI) | payer OTHER | LOC: SJCVC 15:10 | PROVIDERS: ATTEND Internal Medicine Cardiovascular Disease | DX: I48.91 Unspecified atrial fibrillation (principal); I25.10 Atherosclerotic heart disease of native coronary artery without angina pectoris; I82.411 Acute embolism and thrombosis of right femoral vein; I10 Essential (primary) hypertension; E78.00 Pure hypercholesterolemia, unspecified; D68.59 Other primary thrombophilia; R06.02 Shortness of breath ==

== ENCOUNTER → 2020-03-22 | Outpatient (CLI) | payer OTHER ==
[~2020-03-22] MED LIST changes: +FLECAINIDE ACE150 MG PO; +PRADAXA150 MG PO
== END ==
LOC: LAB 11:15
PROVIDERS: ATTEND Internal Medicine Cardiovascular Disease
DX: Z20.828 Contact with and (suspected) exposure to other viral communicable diseases (principal)

== ENCOUNTER → 2020-03-24 | Outpatient (CLI) | payer OTHER ==
[~2020-03-24] VITALS: Ht 170.2 cm; Wt 91.2 kg
[2020-03-24 07:47] VITALS: BP 133/77
--- NOTE | 2020-03-24 09:43 | EKG ---
[facility] [place] [address] ELECTROCARDIOGRAM REPORT Name: TEIXEIRADORETHA CERVANTES Room #: REG [facility]#: [id number] Admission: 03/24/20 Attend Phys: Frank Pierson MD, Discharge: Date of : 37 Report #: [id number] THIS REPORT FOR: cc: Karen Sheehan MD, Melanie MD Santiago,Frank AGGARWAL [facility] ~ THIS REPORT FOR: //name// [facility] Test Date: 2020-03-24 Test Time: 09:22:44 Pat Name: DORETHA TEIXEIRA Department: Room: Gender: F Optimization Specialist: ESTRELLA : 1935 Requested By: Frank Pierson Order Number: [id number] MD: Frank Pierson Measurements Intervals [place] Rate: 84 P: -41 [place]: 203 QRS: 65 QRSD: 95 T: -3 QT: 372 QTc: 440 Interpretive Statements Sinus rhythm Borderline low voltage, extremity leads Abnormal R-wave progression, late shirt presser(s) aVL were not used for morphology analysis Compared to ECG 10/15/2019 07:01:39 No significant changes Electronically Signed On 03-24-2020 9:43:10 FRUIT GRADER OPERATOR by Frank Pierson [email or web address] <ELECTRONICALLY SIGNED> By: Frank Pierson MD, FACC 03/24/2043 1 1 Frank Pierson MD, FACC /EPI
--- NOTE | 2020-03-24 09:48 | TEE ---
[facility] [place] [address] TRANSESOPHAGEAL ECHOCARDIOGRAM Name: DORETHA TEIXEIRA Room #: REG [facility]#: [id number] Admission: 03/24/20 Attend Phys: Frank Pierson MD, Discharge: Date of : 37 Report #: [id number] THIS REPORT FOR: cc: Karen Sheehan MD, Melanie MD Santiago, Patrick MD [facility] ~ APPROVED REPORT Study performed: 03/24/2020 08:38:41 EXAM: Comprehensive 2D, Doppler, and color-flow Echocardiogram Patient Location: Out-Patient Room #: 9 Status: routine BSA: 2.03 HR: 85 bpm BP: 120/94 mmHg Rhythm: Atrial Fibrillation Other Information Study Quality: Adequate Indications Atrial Fibrillation Echo Enhancing Agent Indication: Rule out Shunt Agent(s) / Amount(s) Used: Agitated Saline 7 cc Procedure After obtaining informed consent, patient underwent transesophageal echo in the Body Piercer [employer]. Type of Sedation : Conscious Sedation Sedation was administered by Nurse. Sedation was achieved intravenously with: Versed (4 mg) Fentanyl (75 mcg) Transesophageal probe was inserted and advanced into esophagus without difficulty by Ankit Pierson MD. Echo enhancement indication: R/O Septal defect. Echo enhancement agent administered: Agitated Saline The DAVIDE was performed without complications. Synchronized Cardioversion acheived with 120 Joules after 1 attempt(s). [facility] [address] [place] [address] TRANSESOPHAGEAL ECHOCARDIOGRAM Name: DORETHA TEIXEIRA Room #: REG CL [facility]#: [id number] Admission: 03/24/20 Attend Phys: Frank Pierson, Discharge: Date of : 37 Report #: [id number] Rhythm following Synchronized Cardioversion: Normal Sinus Rhythm Throughout the procedure, the blood pressure, pulse oximetry, cardiac rhythm, and rate were monitored. The patient tolerated the procedure without adverse effects. Recovery from conscious sedation was uneventful and vital signs were stable. Left Ventricle The left ventricle is normal size. There is normal LV segmental wall motion. There is normal left ventricular wall thickness. The left ventricular systolic function is normal. The left ventricular ejection fraction is within the normal range. LVEF is 55-60%. Right Ventricle The right ventricle is normal size. The right ventricular systolic function is normal. Atria Left atrium is dilated. Interatrial septum is intact without evidence of ASD or PFO. The right atrium size is normal. Aortic Valve The aortic valve is normal in structure. No aortic regurgitation is present. There is no aortic valvular stenosis. Mitral Valve The mitral valve is normal in structure. There is no mitral valve regurgitation noted. No evidence of mitral valve stenosis. Tricuspid Valve The tricuspid valve is normal in structure. There is no tricuspid valve regurgitation noted. Pulmonic Valve The pulmonary valve is normal in structure. Great Vessels The aortic root is normal in size. Pericardium There is no pericardial effusion. <Conclusion> Consent was obtained All questions were answered Atrial fibrillation at baseline [facility] [address] [place] [address] TRANSESOPHAGEAL ECHOCARDIOGRAM Name: DORETHA TEIXEIRA Room #: REG [facility]#: [id number] Admission: 03/24/20 Attend Phys: Frank Pierson, Discharge: Date of : 39 Report #: [id number] Esophageal probe was advanced without any difficulty Left atrial appendage small, no obvious clot detected Normal atrial size Normal mitral/aortic valve structure and function. Trace mitral valve insufficiency No evidence of atrial/ventricular septal defect by color-flow Doppler study Ejection fraction 60% Patient was successfully cardioverted to sinus rhythm with 120 J in a biphasic mode Patient tolerated the procedure well Twelve-lead ECG is pending. <ELECTRONICALLY SIGNED> By: Frank Pierson MD, FACC 03/24/2047 6 Frank Pierson MD, FACC /INF
== END | disposition home or self-care (01) ==
LOC: CATH 06:29
PROVIDERS: ATTEND Internal Medicine
DX: I48.91 Unspecified atrial fibrillation (principal); I34.1 Nonrheumatic mitral (valve) prolapse; I10 Essential (primary) hypertension; E78.5 Hyperlipidemia, unspecified; I25.10 Atherosclerotic heart disease of native coronary artery without angina pectoris; K21.9 Gastro-esophageal reflux disease without esophagitis; Z98.890 Other specified postprocedural states; Z79.899 Other long term (current) drug therapy; Z79.01 Long term (current) use of anticoagulants; Z88.0 Allergy status to penicillin; Z91.041 Radiographic dye allergy status; Z88.8 Allergy status to other drugs, medicaments and biological substances

== ENCOUNTER → 2020-03-31 | Outpatient (CLI) | payer OTHER | LOC: SJCVC 12:49 | PROVIDERS: ATTEND Nurse Practitioner Adult Health | DX: I44.0 Atrioventricular block, first degree (principal); R94.31 Abnormal electrocardiogram [ECG] [EKG]; I48.91 Unspecified atrial fibrillation; I82.411 Acute embolism and thrombosis of right femoral vein; D68.59 Other primary thrombophilia; E78.00 Pure hypercholesterolemia, unspecified; I10 Essential (primary) hypertension; K21.9 Gastro-esophageal reflux disease without esophagitis; J45.909 Unspecified asthma, uncomplicated; I25.10 Atherosclerotic heart disease of native coronary artery without angina pectoris; Z87.891 Personal history of nicotine dependence; Z79.899 Other long term (current) drug therapy ==

== ENCOUNTER → 2020-06-23 | Outpatient (CLI) | payer OTHER | LOC: SJCVC 14:53 | PROVIDERS: ATTEND Internal Medicine Cardiovascular Disease | DX: I25.10 Atherosclerotic heart disease of native coronary artery without angina pectoris (principal); R94.31 Abnormal electrocardiogram [ECG] [EKG]; I48.91 Unspecified atrial fibrillation; I82.411 Acute embolism and thrombosis of right femoral vein; D68.59 Other primary thrombophilia; E78.00 Pure hypercholesterolemia, unspecified; I10 Essential (primary) hypertension; J45.909 Unspecified asthma, uncomplicated; Z90.49 Acquired absence of other specified parts of digestive tract; Z98.890 Other specified postprocedural states; Z88.0 Allergy status to penicillin; Z88.8 Allergy status to other drugs, medicaments and biological substances; Z79.899 Other long term (current) drug therapy; Z87.891 Personal history of nicotine dependence; Z82.49 Family history of ischemic heart disease and other diseases of the circulatory system ==

== ENCOUNTER 2020-12-10 13:55 | Emergency (ER) | payer OTHER ==
[~2020-12-10] VITALS: Ht 172.7 cm; Wt 92.5 kg
--- NOTE | ~2020-12-10 | EMS ---
[address] [address] EMS Patient Care Report Name: DORETHA TEIXEIRA [id number] Admission: 12/10/20 Attend Phys: Discharge: Date of : 39 Report #: [id number] THIS REPORT FOR: //name// Report Transmitted: 12/10/2020 14:43 EMS Care Summary [place], [place]/[facility] Incident [id number] @ 12/10/2020 13:17 Incident Location [id number] [place] [address] Patient DORETHA TEIXEIRA Female, 85 Years 1935 Patient Address [address] [place] [address] Patient History Cardiac - Stent, Patient Allergies Penicillin allergy, Patient Medications Xarelto, Plavix, Chief Complaint gi bleed Disposition Transported No Lights/[place] Dispatch Reason Hemorrhage/Laceration Transported To [facility] Narrative pt found walking downstairs and is headed out to ems. pt a&ox4 gcs 15 and did not present in apparent distress. pt complained of diarrhea and lower gi bleed x9 hrs. pt requested to be transported to [facility]. pt walked to ems cot. pt was transferred onto ems cot and was secured in a semi fowlers position without [address] [address] EMS Patient Care Report Name: DORETHA TEIXEIRA Room #: REG [facility]#: [id number] Admission: 12/10/20 Attend Phys: Discharge: Date of : 39 Report #: [id number] incident. pt was loaded into ambulance. pt is on plavix and xarelto. ra spo2 88%. pt was administered 2lpmo2 via nc. pt denies any soa. pt was transported non emergent. transport was uneventful and pt rested on ems cot. pt care was transferred to appropriate staff and ems goes back in service. ems had to return to [facility] at approx 1530 to get pts signature as ems did not during contact. Initial Vitals @13:27P: 126,R: 20,BP: 118/80,Pain: 6/10,GCS: 15,SpO2: 88,Revised Trauma: 12, @13:48P: 124,R: 20,BP: 142/72,GCS: 15,SpO2: 94,Revised Trauma: 12, Assessments @13:24MENTAL:No Abnormalities,SKIN:No Abnormalities,HEENT:Head/Face: No Abnormalities,Eyes: No Abnormalities,Neck/Airway: No Abnormalities,LUNG SOUNDS:General: No Abnormalities,Left Upper: No Abnormalities,Right Upper: No Abnormalities,Left Lower: No Abnormalities,Right Lower: No Abnormalities,ABDOMEN:General: No Abnormalities,Left Upper: No Abnormalities,Right Upper: No Abnormalities,Left Lower: No Abnormalities,Right Lower: No Abnormalities,PELVIS//GI:Rectal Bleeding,EXTREMITIES:Left Arm: No Abnormalities,Right Arm: No Abnormalities,Left Leg: No Abnormalities,Right Leg: No Abnormalities,PULSE:NEURO:No Abnormalities,@13:43MENTAL:No Abnormalities,SKIN:No Abnormalities,HEENT:Head/Face: No Abnormalities,Eyes: No Abnormalities,Neck/Airway: No Abnormalities,LUNG SOUNDS:General: No Abnormalities,Left Upper: No Abnormalities,Right Upper: No Abnormalities,Left Lower: No Abnormalities,Right Lower: No Abnormalities,ABDOMEN:General: No Abnormalities,Left Upper: No Abnormalities,Right Upper: No Abnormalities,Left Lower: No Abnormalities,Right Lower: No Abnormalities,PELVIS//GI:No Abnormalities,EXTREMITIES:Left Arm: No Abnormalities,Right Arm: No Abnormalities,Left Leg: No Abnormalities,Right Leg: No Abnormalities,PULSE:NEURO:No Abnormalities, Impression Gastrointestinal hemorrhage Procedures @13:28Oxygen FlowRate: 2 Device: Nasal Cannula (NC) Response: ImprovedSucceeded@13:24ALS AssessmentResponse: UnchangedSucceeded Timeline 13:16,Call Received 13:16,Dispatch Notified 13:17,Dispatched 13:18,En Route 13:23,On Scene 13:24,At Patient 13:24,ALS Assessment,Response: UnchangedSucceeded, [facility] [address] [place] [address] EMS Patient Care Report Name: DORETHA TEIXEIRA Room #: REG Mindy#: [id number] Admission: 12/10/20 Attend Phys: Discharge: Date of : 39 Report #: [id number] 13:27,BP: 118/80 M,PULSE: 126,RR: 20 R,SPO2: 88 Ox,ETCO2: ,BG: ,PAIN: 6,GCS: 15, 13:28,Oxygen FlowRate: 2 Device: Nasal Cannula (NC) Response: ImprovedSucceeded, 13:40,Depart Scene 13:48,BP: 142/72 M,PULSE: 124,RR: 20 R,SPO2: 94 Ox,ETCO2: ,BG: ,PAIN: ,GCS: 15, 13:52,At Destination 14:04,Call Closed Disclaimer [email or web address] Copyright 2020 [email or web address] This EMS Care Summary contains data elements from the applicable legal record (which may be displayed differently). It is designed to provide pertinent information for the following purposes: continuity of care, clinical quality, and state data reporting. The complete legal record is available to ED staff and administrators of the receiving hospital in [employer] Patient Tracker. All data is provided "as is."
[2020-12-10 14:14] LABS: ABSOLUTE NEUTROPHILS 9.2 thou/uL (1.4-8.2); BASOPHILS 0.3 % (0.0-2.0); HEMATOCRIT 43.6 % (37.0-47.0); HEMOGLOBIN 14.8 gm/dL (12.0-15.0); MCH 30.7 pg (26.0-34.0); MCHC 33.9 g/dL (28.0-37.0); MCV 90.5 fL (80.0-100.0); MONOCYTES 4.7 % (1.0-8.0); PLATELET COUNT 123 thou/uL (150-400); RBC 4.82 mil/uL (4.20-5.00); RDW 15.4 % (10.5-14.5); WBC 10.1 thou/uL (4.0-11.0)
[2020-12-10 14:38] LABS: CALCIUM 8.7 mg/dL (8.5-10.1); CREATININE 0.8 mg/dL (0.6-1.0); POTASSIUM 3.7 mmol/L (3.5-5.1)
[2020-12-10 14:42] LABS: ALBUMIN 3.4 g/dL (3.4-5.0); MAGNESIUM 1.9 mg/dL (1.8-2.4); TOTAL BILIRUBIN 1.3 mg/dL (0.2-1.0)
[2020-12-10 16:09] LABS: URINE BILIRUBIN NEGATIVE (Negative); URINE BLOOD 3+ (Negative); URINE COLOR YELLOW; URINE GLUCOSE-RANDOM* NEGATIVE (Negative); URINE KETONES NEGATIVE (Negative); URINE PROTEIN (DIPSTICK) 1+ (Negative); URINE UROBILINOGEN 0.2 E.U./dl (0.2-1.0)
[2020-12-10] MEDS ORDERED: CEPHALEXIN500 MG PO (16:09)
[2020-12-10] MEDS ORDERED: METRONIDAZOLE500 M4 PO (16:09)
[2020-12-10 16:14] LABS: URINE CLARITY CLOUDY; URINE LEUKOCYTES-REFLEX 3+ (Negative); URINE NITRITE-REFLEX POSITIVE (Negative)
[2020-12-10 16:15] VITALS: BP 100/48
[2020-12-10 16:26] LABS: SQUAMOUS 0-3 Few /LPF (0-3)
[2020-12-10 16:27] LABS: BACTERIA-REFLEX >30 Many /HPF (None Seen); CASTS None Seen /LPF (None Seen); CRYSTALS None Seen /LPF (None Seen); URINE RBC 3-10 Few /HPF (NONE SEEN); URINE WBC-REFLEX >25 Many /HPF (0-5)
--- NOTE | 2020-12-13 07:25 | EKG ---
[place] [address] [facility] [place] [address] ELECTROCARDIOGRAM REPORT Name: TEIXEIRADORETHA Cisneros Room #: DEP [facility]#: [id number] Admission: 12/10/20 Attend Phys: Discharge: 12/10/20 Date of : 39 Report #: [id number] [facility] ED Test Date: 2020-12-10 Test Time: 14:04:44 Pat Name: DORETHA TEIXEIRA Department: Room: Gender: F Mastic Man: : 1935 Requested By: Narciso Solorzano Order Number: [id number] MD: Frank Pierson Measurements Intervals [place] Rate: 121 P: -6 SC: 178 QRS: 19 QRSD: 97 T: -18 QT: 301 QTc: 427 Interpretive Statements Sinus tachycardia Borderline T abnormalities, inferior leads Compared to ECG 03/24/2020 09:22:44 T-wave abnormality now present Sinus rhythm no longer present Electronically Signed On 12-13-2020 7:25:26 CDT by Frank Pierson [email or web address] <ELECTRONICALLY SIGNED> By: Frank Pierson MD, [facility] 12/13/20 0725 1404 1404 Frank Pierson MD, FACC /EPI
[2020-12-14] MEDS ORDERED: DOXYCYCLINE 10100 MG PO (09:18)
== END 2020-12-10 16:15 | disposition home or self-care (01) ==
LOC: ER 13:55
PROVIDERS: Emergency Medicine
DX: K52.9 Noninfective gastroenteritis and colitis, unspecified (principal); I10 Essential (primary) hypertension; Z79.899 Other long term (current) drug therapy; Z87.891 Personal history of nicotine dependence; Z88.1 Allergy status to other antibiotic agents; Z88.6 Allergy status to analgesic agent; Z88.0 Allergy status to penicillin; Z88.8 Allergy status to other drugs, medicaments and biological substances

== ENCOUNTER → 2021-01-12 | Outpatient (CLI) | payer OTHER ==
[~2021-01-12] MED LIST changes: +CEPHALEXIN500 MG PO; +DOXYCYCLINE 10100 MG PO; +METRONIDAZOLE500 M4 PO
== END ==
LOC: SJCVC 13:09
PROVIDERS: ATTEND Internal Medicine Cardiovascular Disease
DX: R94.31 Abnormal electrocardiogram [ECG] [EKG] (principal); I25.10 Atherosclerotic heart disease of native coronary artery without angina pectoris; I10 Essential (primary) hypertension; E78.00 Pure hypercholesterolemia, unspecified; I48.91 Unspecified atrial fibrillation; D68.59 Other primary thrombophilia; Z98.61 Coronary angioplasty status; F41.9 Anxiety disorder, unspecified; Z87.891 Personal history of nicotine dependence; Z79.899 Other long term (current) drug therapy; Z88.0 Allergy status to penicillin; Z88.2 Allergy status to sulfonamides; Z88.1 Allergy status to other antibiotic agents; Z88.8 Allergy status to other drugs, medicaments and biological substances